=== PATIENT | male | born 2000 ===

== ENCOUNTER 2023-09-30 00:30 | Emergency (ER) | payer OTHER ==
[~2023-09-30] VITALS: Ht 177.8 cm; Wt 63.6 kg
[2023-09-30 00:50] VITALS: BP 115/80; PULSE 102; RESP 16; TEMP 97.2
[2023-09-30] MEDS: LIDOCAINE 1% HCL (LOCAL ANESTH.) INJ 20ML MDV ID ONE (01:30)
[2023-09-30] MEDS: NEOMYCIN-BACITRACIN-POLYM UNITDOSE PKG TOP OINT TOP ONE (01:30)
[2023-09-30] MEDS ORDERED: MUPI2OIN2 EX (01:39)
[2023-09-30] MEDS ORDERED: AUG875T PO (01:39)
[2023-09-30] MEDS ORDERED: IBUP1TAB5 PO (01:39)
[2023-09-30 02:33] VITALS: O2SAT 98
[2023-09-30] MEDS: AMOXICILLIN/CLAVUL 875 MG TAB PO ONE (02:47)
[2023-09-30] MEDS: TETANUS-DIPTH-ACEL PERTUSSIS 0.5ML SYR Tdap IM ONE (03:19)
== END 2023-09-30 03:27 | disposition home or self-care (01) ==
LOC: EDSEX 00:30 → ER 00:30
DX: S61.216A Laceration without foreign body of right little finger without damage to nail, initial encounter (principal); W54.0XXA Bitten by dog, initial encounter; Y93.89 Activity, other specified; Y92.89 Other specified places as the place of occurrence of the external cause; Y99.8 Other external cause status
CPT/HCPCS: 12002; 90471; 90715; 99283; J2001

== ENCOUNTER 2023-10-14 09:35 | Emergency (ER) | payer OTHER ==
[~2023-10-14] VITALS: Ht 177.8 cm; Wt 62.9 kg
[~2023-10-14 09:35] MED LIST: AUG875T PO; IBUP1TAB5 PO; MUPI2OIN2 EX
[2023-10-14 09:53] VITALS: TEMP 97.8
[2023-10-14 09:57] VITALS: BP 108/70; PULSE 91; RESP 16; O2SAT 96
== END 2023-10-14 11:46 | disposition home or self-care (01) ==
LOC: ER 09:35
DX: S61.216D Laceration without foreign body of right little finger without damage to nail, subsequent encounter (principal); Z48.00 Encounter for change or removal of nonsurgical wound dressing; Z79.899 Other long term (current) drug therapy; X58.XXXD Exposure to other specified factors, subsequent encounter